=== PATIENT | female | born 1970 | race Caucasian/White ===

== ENCOUNTER → 2023-11-04 12:50 | Outpatient (REF) | payer OTHER, SELFPAY ==
[2023-11-04 15:34] LABS: Urine Albumin Negative (Neg - Trace); Urine Bilirubin Negative (Negative); Urine Character Clear (Clear); Urine Glucose Negative (Negative); Urine Ketone Negative (Negative); Urine Leukocyte 2+ (Negative); Urine Nitrite Negative (Negative); Urine Occult Blood Negative (Negative); Urine Specific Gravity 1.015 (<1.030); Urine Urobilinogen Negative (Neg - 1+)
[2023-11-04 15:45] LABS: Urine Squamous Cell 26-30 /LPF (Few)
[2023-11-04 15:46] LABS: Urine Bacteria Many (Negative); Urine Red Blood Cell 0-2 /HPF (0-2); Urine White Cell 16-20 /HPF (0-5)
== END ==
LOC: HWRAD 12:50
PROVIDERS: ATTENDING PHYSICIAN Surgery; FAMILY PHYSICIAN Nurse Practitioner Gerontology
DX: N20.0 Calculus of kidney (principal); N39.0 Urinary tract infection, site not specified
CPT/HCPCS: 74018; 81003; 81015; 87086; 87088; 87186

== ENCOUNTER → 2023-11-06 15:36 | Outpatient (REF) | payer OTHER, SELFPAY | LOC: WDC 15:36 | PROVIDERS: ATTENDING PHYSICIAN Obstetrics & Gynecology; FAMILY PHYSICIAN Nurse Practitioner Gerontology | DX: Z12.31 Encounter for screening mammogram for malignant neoplasm of breast (principal) | CPT/HCPCS: 77063; 77067 ==

== ENCOUNTER → 2023-11-11 09:24 | Outpatient (REF) | payer OTHER, SELFPAY | LOC: WDC 09:24 | PROVIDERS: ATTENDING PHYSICIAN Obstetrics & Gynecology; FAMILY PHYSICIAN Nurse Practitioner Gerontology | DX: R92.8 Other abnormal and inconclusive findings on diagnostic imaging of breast (principal) | CPT/HCPCS: 76642 ==

== ENCOUNTER → 2024-01-07 08:52 | Outpatient (REF) | payer OTHER, SELFPAY | LOC: RAD 08:52 | PROVIDERS: ATTENDING PHYSICIAN Surgery; FAMILY PHYSICIAN Nurse Practitioner Gerontology | DX: N20.0 Calculus of kidney (principal) | CPT/HCPCS: 74018; 76775 ==

== ENCOUNTER → 2024-04-23 09:54 | Outpatient (REF) | payer OTHER, SELFPAY | LOC: RAD 09:54 | PROVIDERS: ATTENDING PHYSICIAN Surgery | DX: Z87.442 Personal history of urinary calculi (principal) | CPT/HCPCS: 76775 ==

== ENCOUNTER → 2024-09-17 13:39 | Outpatient (REF) | payer SELFPAY | LOC: HWRAD 13:39 | PROVIDERS: ATTENDING PHYSICIAN Nurse Practitioner Gerontology | DX: E78.2 Mixed hyperlipidemia (principal) | CPT/HCPCS: 75571 ==

== ENCOUNTER → 2024-09-17 13:44 | Outpatient (REF) | payer OTHER, SELFPAY | LOC: HWRAD 13:44 | PROVIDERS: ATTENDING PHYSICIAN Surgery; FAMILY PHYSICIAN Nurse Practitioner Gerontology | DX: N20.0 Calculus of kidney (principal) | CPT/HCPCS: 74018 ==

== ENCOUNTER → 2024-11-20 07:25 | Outpatient (REF) | payer OTHER, SELFPAY | LOC: WDC 07:25 | PROVIDERS: ATTENDING PHYSICIAN Obstetrics & Gynecology; FAMILY PHYSICIAN Nurse Practitioner Gerontology | DX: Z12.31 Encounter for screening mammogram for malignant neoplasm of breast (principal) | CPT/HCPCS: 77063; 77067 ==

== ENCOUNTER → 2024-12-01 11:35 | Outpatient (REF) | payer OTHER, SELFPAY | LOC: HWRAD 11:35 | PROVIDERS: ATTENDING PHYSICIAN Surgery; FAMILY PHYSICIAN Nurse Practitioner Gerontology | DX: N20.0 Calculus of kidney (principal) | CPT/HCPCS: 74018 ==

== ENCOUNTER 2024-12-18 19:15 | Emergency (ER) | payer OTHER, SELFPAY ==
[2024-12-18] VITALS (7 sets, daily range): BP systolic 104–152; BP diastolic 70–90; BMI 36.0
[2024-12-18 19:51] LABS: Hematocrit 40.1 % (37.0-47.0); Hemoglobin 14.4 g/dL (12.0-16.0); Mean Corp Hgb Conc. 35.9 g/dL (33.0-37.0); Mean Corpuscular Volume 82.5 fL (81.0-99.0); Nucleated Red Blood Cells % 0 %; Platelet Count 214 10^3/uL (130-400); Red Cell Dist. Width 12.5 % (11.5-14.5)
[2024-12-18 20:17] LABS: Troponin I < 0.012 ng/ml
[2024-12-18 20:33] LABS: ALT (SGPT) 31 U/L (0-35); AST (SGOT) 23 U/L (14-36); Albumin 4.3 g/dl (3.5-5.0); Alkaline Phosphatase 64 U/L (38-126); Blood Urea Nitrogen 22 mg/dl (7-17); Calcium 9.5 mg/dl (8.4-10.2); Carbon Dioxide 26 mmol/L (22-30); Chloride 104 mmol/L (98-107); Glucose 93 mg/dl (70-99); Potassium 3.4 mmol/L (3.5-5.1); Sodium 138 mmol/L (135-145); Total Protein 6.8 g/dl (6.3-8.2); eGFR > 60.00
[2024-12-18 22:28] LABS: Magnesium 1.9 mg/dl (1.6-2.3)
[2024-12-18 22:38] LABS: Urine Character Clear (Clear)
[2024-12-18 22:45] LABS: Urine Red Blood Cell 0-2 /HPF (0-2); Urine White Cell 30-40 /HPF (0-5)
--- NOTE | 2024-12-18 22:46 | ED.GENMED ---
History of Present Illness
<ALY Paniagua - Last Filed: 12/19/24 00:16>
General
Chief Complaint: Chest Pain
Source: patient
Exam Limitations: none
Time Seen by Provider: 12/18/24 22:10
Nursing documentation reviewed up to this point in time: agreed with
History of Present Illness
History of Present Illness:
Patient is a 54 year old female with PMH of anxiety, chronic renal stones, and HLD, who presents to the ED complaining of palpitations. Patient reports noting a HR of 130s on her apple watch this afternoon which she confirmed with manual pulse
check. Patient states she had a similar experience last week while attending the [employer]. She denies fever, chills, diaphoresis, N/V.
Past History
<ALY Paniagua - Last Filed: 12/19/24 00:16>
Past History
ED Past Medical History: Hypercholesterolemia, Hypothyroidism and Psychiatric (Anxiety)
ED Past Surgical History: Orthopedic (Left shoulder)
Patient has exhibited threatening behavior?: No
Social History
Living: with family
Employment: Employed
Review of Systems
<ALY Paniagua - Last Filed: 12/19/24 00:16>
Review of Systems
Allergies reviewed?: Yes
All Other Systems: ROS reviewed and negative except as documented in HPI and ROS
Constitutional: Reports no symptoms
Respiratory: Reports no symptoms
Cardiac: Reports palpitations
ABD/GI: Reports no symptoms
Neurological: Reports no symptoms
Endocrine: Reports no symptoms
Phy Exam
<ALY Paniagua - Last Filed: 12/19/24 00:16>
General Physical Exam
General Presentation: no apparent distress
General Skin: warm and dry
General Mental: alert
Cardiovascular Exam
Cardiovascular Exam: regular rate/rhythm
Pulmonary Exam
Pulmonary Exam: lungs clear and no respiratory distress
Oxygen Status: room air
Cough: no cough
Musculoskeletal Exam
Musculoskeletal Exam: full ROM
Psychiatric Exam
Psychiatric Exam: normal mood/affect
Scores
<Carin Monteiro [facility] - Last Filed: 12/19/24 00:16>
Heart Score for Chest Pain Patients
STEMI patient?: No
History: Slightly or Non-Suspicious
ECG: Normal
Age: >45 - <65 years
Risk Factors: No Risk Factors
Troponin: </= Normal Limit
Heart Score for Chest Pain Patients: 1
Heart Score Risk: 2.5% MACE over next 6 weeks
<Stella Galdamez DO - Last Filed: 12/19/24 07:47>
Heart Score for Chest Pain Patients
STEMI patient?: No
History: Slightly or Non-Suspicious
ECG: Nonspecific Repolarization
Age: >45 - <65 years
Risk Factors: No Risk Factors
Troponin: </= Normal Limit
Heart Score for Chest Pain Patients: 2
Heart Score Risk: 2.5% MACE over next 6 weeks
Course
<Carin Monteiro, [facility] - Last Filed: 12/19/24 00:16>
Orders/Labs/Results
Orders:
Orders
12/18/24 19:31
Electrocardiogram (*1) Urgent
Reason for Study: Chest Pain
EKG- Treatment ONCE
12/18/24 19:42
Complete Blood Count/With Diff Urgent
Comprehensive Metabolic Panel Urgent
Magnesium Urgent
Comment: ADD ON
TSH Reflex To Free T4 Urgent
Comment: ADD ON
Troponin I Urgent
12/18/24 21:53
Add On- LAB Urgent
Comments:: TSH reflex to Free T4
Tests Added?: TSH reflex to Free T4
CXR2 [CR Chest - 2 Views ] Urgent
Comment:
Reason For Exam: chest pain
12/18/24 22:18
Add On- LAB Urgent
Tests Added?: Mg
12/18/24 22:31
Urinalysis Reflex To Culture Urgent
Date Specimen was Collected: 12/18/24
Time Specimen was Collected: 22:23
Urine Microscopic Reflex Cult Urgent
Urine Culture Urgent
ROBLES Source: U
Specimen Description:
Date Specimen was Collected: 12/18/24
Time Specimen was Collected: 22:23
12/18/24 23:14
Potassium Chloride [KCl] 20 meq PO NOW STA
12/18/24 23:18
Ibuprofen [Motrin] 600 mg PO NOW STA
Nitrofurantoin Monohydrate [Macrobid] 100 mg PO NOW STA
Abnormal Lab Results
12/18/24 12/18/24
19:42 22:31
MPV 10.7 H fL
(7.4-10.4)
Absolute Monos (auto) 0.7 H 10^3/uL
(0.1-0.6)
Potassium 3.4 L mmol/L
(3.5-5.1)
BUN 22 H mg/dl
(7-17)
Leukocyte Esterase Rfl 2+ A
(Negative)
Urine WBC (Reflex) 30-40 A /HPF
(0-5)
Urine Bacteria (Reflex) Many A
(Negative)
Urine Albumin (Reflex) 1+ A
(Neg - Trace)
12/18/24 19:42
12/18/24 19:42
Vital Signs
Initial and Last Documented VS:
Initial Vital Signs
Temp Pulse Resp BP Pulse Ox
97.2 F 108 18 152/90 100
12/18/24 19:23 12/18/24 19:23 12/18/24 19:23 12/18/24 19:23 12/18/24 19:23
Last Documented Vital Signs
Temp Pulse Resp BP Pulse Ox
98.3 F 86 19 106/70 96
12/18/24 21:45 12/19/24 00:00 12/19/24 00:00 12/18/24 23:58 12/19/24 00:00
<Stella Galdamez, DO - Last Filed: 12/19/24 07:47>
Orders/Labs/Results
Orders:
Orders
12/18/24 19:31
Electrocardiogram (*1) Urgent
Reason for Study: Chest Pain
EKG- Treatment ONCE
12/18/24 19:42
Complete Blood Count/With Diff Urgent
Comprehensive Metabolic Panel Urgent
Magnesium Urgent
Comment: ADD ON
TSH Reflex To Free T4 Urgent
Comment: ADD ON
Troponin I Urgent
12/18/24 21:53
Add On- LAB Urgent
Comments:: TSH reflex to Free T4
Tests Added?: TSH reflex to Free T4
CXR2 [CR Chest - 2 Views ] Urgent
Comment:
Reason For Exam: chest pain
12/18/24 22:18
Add On- LAB Urgent
Tests Added?: Mg
12/18/24 22:31
Urinalysis Reflex To Culture Urgent
Date Specimen was Collected: 12/18/24
Time Specimen was Collected: 22:23
Urine Microscopic Reflex Cult Urgent
Urine Culture Urgent
ROBLES Source: U
Specimen Description:
Date Specimen was Collected: 12/18/24
Time Specimen was Collected: 22:23
12/18/24 23:14
Potassium Chloride [KCl] 20 meq PO NOW STA
12/18/24 23:18
Ibuprofen [Motrin] 600 mg PO NOW STA
Nitrofurantoin Monohydrate [Macrobid] 100 mg PO NOW STA
Abnormal Lab Results
12/18/24 12/18/24
19:42 22:31
MPV 10.7 H fL
(7.4-10.4)
Absolute Monos (auto) 0.7 H 10^3/uL
(0.1-0.6)
Potassium 3.4 L mmol/L
(3.5-5.1)
BUN 22 H mg/dl
(7-17)
Leukocyte Esterase Rfl 2+ A
(Negative)
Urine WBC (Reflex) 30-40 A /HPF
(0-5)
Urine Bacteria (Reflex) Many A
(Negative)
Urine Albumin (Reflex) 1+ A
(Neg - Trace)
12/18/24 19:42
12/18/24 19:42
Vital Signs
Initial and Last Documented VS:
Initial Vital Signs
Temp Pulse Resp BP Pulse Ox
97.2 F 108 18 152/90 100
12/18/24 19:23 12/18/24 19:23 12/18/24 19:23 12/18/24 19:23 12/18/24 19:23
Last Documented Vital Signs
Temp Pulse Resp BP Pulse Ox
98.3 F 86 19 106/70 96
12/18/24 21:45 12/19/24 00:00 12/19/24 00:00 12/18/24 23:58 12/19/24 00:00
<ALY Paniagua - Last Filed: 12/19/24 00:16>
MDM/Problems Addressed
Differential Diagnosis Includes:
Tachycardia, anxiety, pulmonary embolism, hypovolemia, hyperthyroidism, fever, UTI, anemia, pain
Chronic conditions affecting care:
Anxiety, hypothyroidism
<ALY Paniagua - Last Filed: 12/19/24 00:16>
*Pulse Oximetry
SaO2: 98
Oxygen Mode of Delivery: Room air
Patient hypoxic: no
*Critical Care Note
Total Time (30-74mins, 75-104mins- exclusive of procedures): Not Applicable
<Stella Galdamez DO - Last Filed: 12/19/24 07:47>
*Radiology
Radiology exam reviewed: preliminary read by ED provider (Chest x-ray is unremarkable. Clear lung mayo. Normal heart size.)
*Pulse Oximetry
Patient hypoxic: no
*EKG
Interpreted by ED Provider?: Yes
Comparison EKG: no comparison EKG present
Rate: normal
Rhythm: sinus
[place]: normal axis
Interval: normal interval
QRS Pattern: normal QRS
Ischemia: T-wave inversion (Flipped T waves anteriorly)
*[employer] Interpretation
Rate: normal
Interpretation: normal
Rhythm: sinus
*Critical Care Note
Total Time (30-74mins, 75-104mins- exclusive of procedures): Not Applicable
ED Attending Note
<ALY Paniagua - Last Filed: 12/19/24 00:16>
-
Portions of this chart may have been created with voice recognition software.� Occasional wrong word or��sound alike� substitutions may have occurred due to the inherent limitations of voice recognition software.
<Stella Galdamez DO - Last Filed: 12/19/24 07:47>
ED Attending Note
Patient seen and examined by attending physician: Yes
I performed the substantive portion of visit, reviewed & personally made and approve the management plan that is documented in note by myself or LG.: Yes
ED Attending Note:
Note:
CHIEF COMPLAINT(S)
Palpitations and heart racing.
HISTORY OF PRESENT ILLNESS
The patient is a 54-year-old female with a past medical history significant for anxiety, partial thyroidectomy, and parathyroid issues. She presents with palpitations and heart racing that she experienced twice, once today and once last week. She
describes the onset as occurring suddenly while relaxing after a day of running activities, with a heart rate reaching the 130s. The palpitations were associated with a sensation of tightness in the chest, described as similar to heaviness right
behind the heart, possibly due to reflux. She reports a persistent headache throughout the day but denies any sweating, dizziness, or lightheadedness.
The patient ate minimally this morning before the onset of symptoms. She indicates that her current symptoms could be related to stress due to recent high household activity and responsibility. She acknowledges taking Xanax at home, which brings
relief, albeit slowly. The patient denies significant chest pain and describes her palpitations primarily as an increased awareness of her heartbeats rather than pain.
ADDITIONAL HISTORY OBTAINED FROM SOURCES OTHER THAN THE PATIENT
The review of previous medical reports reveals an abnormal T-wave noted on EKG 19 years ago, for which the patient has been under the care of a accounts payable payroll coordinator.
She follows with a accounts payable payroll coordinator from [place].
Underwent coronary calcium score September of this year revealing low calcium score of 14.59. Incidental findings of a 2 mm right upper lobe nodule. Right breast nodule that appeared similar to mammogram findings November 2023 and similar appearing
nodule noted on most recent mammogram November 2024. There is also note of debris in distal esophagus concerning for acid reflux.
Patient states she has had Holter monitors in the past, a number of years ago due to complaints of palpitations. Reportedly unremarkable.
She is scheduled for stress test December 28.
She also notes 1 to 2-day history of UTI symptoms. She denies fever. No flank nor back pain nor abdominal pain. Recently treated for a UTI few weeks ago with a 7-day course of Bactrim.
PAST MEDICAL AND SURGICAL HISTORY
Partial thyroidectomy was performed last year due to chest heaviness and abnormal thyroid function. She is currently receiving levothyroxine, with doses being adjusted due to persistent underactivity. There is a history of parathyroidectomy with
persistent high parathyroid hormone levels which may have been attributing to patient's history of frequent kidney stones. Hyperparathyroidism has since resolved. She does have history of kidney stones, follows with Dr. Barker. History of
overactive bladder, frequent UTIs. History of anxiety, obesity. She underwent left shoulder replacement May of this year. Continues with physical therapy for her shoulder.
Her daily medications include: Hydrochlorothiazide 25 mg, uro- MP, amitriptyline, BuSpar, Mounjaro, atorvastatin, Gemtesa
EXTERNAL RECORDS REVIEWED
The patients recent coronary calcium score of [address] scan showed an incidental nodule in the right upper lobe of the lung. A mammogram has shown an unchanged nodule in the right breast. The patient follows a accounts payable payroll coordinator and is expected
to undergo a stress test soon.
CHRONIC MEDICAL CONDITIONS SIGNIFICANTLY AFFECTING CARE
- Anxiety, which may contribute to the patients perception of symptoms or trigger palpitations.
- Known underactive thyroid with adjustments to levothyroxine.
SOCIAL DETERMINANTS AFFECTING HEALTH
The patient reports household as well as work stress which may be exacerbating her symptoms.
PHYSICAL EXAM
General: Alert, no acute distress.
Skin: Warm, dry.
Head: Normocephalic, atraumatic.
Neck: Supple, trachea midline.
Eyes, Ears, Nose, Mouth, and Throat: Oral mucosa moist.
Cardiovascular: Normal peripheral perfusion, No edema. Regular rate and rhythm. No murmur nor rub.
Respiratory: Respirations are non-labored. Lungs are clear to auscultation.
Gastrointestinal: Abdomen nondistended. Soft, nontender.
Back: Normal range of motion, Normal alignment.
Musculoskeletal: Normal range of motion, normal strength.
Neurological: Alert and oriented to person, place, time, and situation, No focal neurological deficit observed.
Psychiatric: Cooperative, appropriate mood & affect.
PROBLEM LIST
Acute:
- Palpitations and tachycardia.
- Headache.
Chronic:
- Anxiety.
- Hypothyroidism with recent partial thyroidectomy.
PLAN
- Monitoring of TSH levels due to ongoing thyroid medication adjustments.
- Potassium supplementation due to possible low levels from hydrochlorothiazide.
- Encourage increased fluid intake.
- Follow-up stress test with a accounts payable payroll coordinator.
- Consideration of a Holter monitor if symptoms persist or increase.
DIFFERENTIAL DIAGNOSIS
The Differential Diagnosis includes, in no particular order and is not limited to:
1. Supraventricular tachycardia (SVT)
2. Anxiety-induced tachycardia
3. Hyperthyroidism (due to overcorrection)
4. Cardiac arrhythmia
5. Electrolyte imbalance
6. Reflux-induced symptoms
7. Mitral valve prolapse
8. Coronary artery disease
9. Orthostatic hypotension
10. Panic disorder
EKG shows normal sinus rhythm, flipped T waves anteriorly which patient states is chronic. I have no old EKGs to compare.
Monitor shows normal sinus rhythm without ectopy nor arrhythmia.
Labs are remarkable for very mild prerenal azotemia and very mild hypokalemia with a potassium of 3.4. Troponin is negative. With persistent symptoms for several hours this afternoon, negative troponin. ACS is unlikely.
Chest x-ray is unremarkable. Clear lung mayo. Normal heart size.
TSH is pending. Magnesium is pending. Urinalysis is pending.
Will plan to replete potassium orally.
No history of thromboembolism nor risk factors for such. She has had no accompanying dyspnea and symptoms are not activity related.
23:55
Monitor continues to show normal sinus rhythm without ectopy nor arrhythmia.
Magnesium is normal.
TSH is normal.
Urinalysis consistent with UTI showing many bacteria, 30-40 WBCs +2 leukocyte esterase. Will treat with a 5-day course of Macrobid. Urine culture is pending.
Recommend she stay well-hydrated on a daily basis as well as consume potassium rich foods.
Encouraged prompt follow-up with accounts payable payroll coordinator for recheck as well as follow-up with PCP.
Discharge Plan
Departure
Patient Disposition: Home (Routine Discharge)
Date of Disposition: 12/19/24
Time of Disposition: 00:01
Patient with high blood pressure during this ER visit?: No
Condition: Good
Discharge Problem:
Heart palpitations, Mild hypokalemia, Nonspecific chest pain, Urinary tract infection
Instructions: Chest Pain NON-DHP Channel Cementer Insole Machine Follow Up, Heart Palpitations
Prescriptions:
New
nitrofurantoin monohyd/m-cryst [Macrobid] 100 mg capsule
100 mg PO Q12H 5 Days Qty: 10 0RF
Referrals:
UNKNOWN - PT NOT,INTERVIEWE [Family Provider]
Activity Restrictions/Additional Instructions:
Follow-up with your accounts payable payroll coordinator as already planned.
Stay well-hydrated on a daily basis.
Increase intake of potassium rich foods such as bananas, strawberries, green leafy veggies.
Interventions
Interventions:
*Risk Screen - Suicide Last Done: 12/18/24 19:30
*General Assessment Last Done: 12/18/24 21:46
*Neglect/Abuse Screening Last Done: 12/18/24 19:30
*ED- Fall Risk Assessment Last Done: 12/18/24 21:46
*ED COVID-19 Vaccine History Last Done: 12/18/24 21:46
*Nursing Disposition Last Done: 12/19/24 00:05
ED- Cardiac Assessment Last Done: 12/18/24 21:47
Discharge Date and Time
Discharge Date/Time: 12/19/24 00:13
Print Language: NEPALI
[2024-12-18] MEDS: MOTRIN 600 MG PO (23:31)
[2024-12-18] MEDS: MACROBID 100 MG PO (23:31)
[2024-12-18] MEDS: KCL 20 MEQ PO (23:32)
== END 2024-12-19 00:13 | disposition home or self-care (01) ==
LOC: EMR 19:15
PROVIDERS: Emergency Medicine; EMERGENCY PHYSICIAN Emergency Medicine
DX: R00.2 Palpitations (principal); E87.6 Hypokalemia; R07.9 Chest pain, unspecified; N39.0 Urinary tract infection, site not specified; R91.1 Solitary pulmonary nodule; E78.00 Pure hypercholesterolemia, unspecified; E89.0 Postprocedural hypothyroidism; F41.9 Anxiety disorder, unspecified; E66.9 Obesity, unspecified; Z68.36 Body mass index [BMI] 36.0-36.9, adult; N32.81 Overactive bladder; Z87.440 Personal history of urinary (tract) infections; Z96.612 Presence of left artificial shoulder joint
CPT/HCPCS: 99284; 71046; 80053; 81003; 81015; 83735; 84443; 84484; 85025; 87077; 87086; 87186; 93005